=== PATIENT | male | born 1955 | race Caucasian/White ===

== ENCOUNTER → 2017-05-08 | Outpatient (CLI) | payer OTHER ==
--- NOTE | 2017-05-08 17:57 | RADRPT ---
PROCEDURE: XR Left Shoulder. CLINICAL INDICATION: Left shoulder pain. TECHNIQUE: Two views. Scapular Y-view and attempted axillary view. COMPARISON: No prior study is available for comparison. FINDINGS: There is no dislocation. The axillary view is suboptimal as the scapula is not completely included. There is no obvious fracture or dislocation. Articular surfaces are intact. There is no lytic or blastic lesion. There is no radiopaque foreign body. IMPRESSION: 1. Limited study as only 2 views were obtained and the axillary view is suboptimal. 2. No obvious fracture or dislocation. RPTAT: QQ .Ryan Nunez MD, Date Time Electronically viewed and signed by .Ryan Nunez MD, on 05/08/2017 17:57 .R/
--- NOTE | 2017-05-09 04:03 | HKNOTE ---
DATE OF SERVICE: 05/08/2017 CHIEF COMPLAINT: Right shoulder pain. HISTORY OF PRESENT ILLNESS: This is a 62-year-old right hand dominant male who states that in January of 2017 he sustained a fall at [facility]. He was taken to [facility] Emergency Department. H e had x-rays. Mr. Han states that his right shoulder was dislocated and a reduction was performe d. He has been attending physical therapy with limited improvement. He has attended 3 sessions of physical therapy. He denies any numbness or tingling in his upper extremity. He has no other compl aints. RIGHT SHOULDER EXAMINATION: The patient has limited range of motion due to pain. Forward flexion 4 0 degrees, abduction 30 degrees, internal rotation 20 degrees, external rotation 20 degrees. Motor strength 5/5 axillary, radial, ulnar, median nerves. X-rays right shoulder: Multiple views of the right shoulder demonstrate degenerative changes of the AC joint. There are no fractures or dislocations. ASSESSMENT: A 62-year-old male with previous right shoulder trauma with subsequent stiffness. PLAN: We will request authorization for physical therapy. He was instructed on home exercises. He will follow up as needed in the future. Dictated By: HERI SPARKS/TONY Conf#: [id number] DID#: [id number]
== END | disposition home or self-care (01) ==
LOC: HKI 13:58
PROVIDERS: ATTEND Orthopaedic Surgery Adult Reconstructive Orthopaedic Surgery
DX: M25.511 Pain in right shoulder (principal)
CPT/HCPCS: G0463

== ENCOUNTER → 2017-08-19 | Outpatient (CLI) | END | disposition home or self-care (01) ==